=== PATIENT | male | born 1965 | race Caucasian/White ===

== ENCOUNTER → 2019-12-02 10:57 | Outpatient (CLI) | payer OTHER, SELFPAY ==
--- NOTE | 2019-12-02 11:00 | DI.RAD.S_ITS ---
PROCEDURE: XR ABDOMEN 1V INDICATIONS: renal calculi versus constipation, R abd pain TECHNIQUE: One view of the abdomen acquired. COMPARISON: None. FINDINGS: Surgical changes and devices: None. Bowel: Bowel gas pattern is normal. Slightly increased proximal colon stool quantity. Soft tissues: No suspicious abdominal calcifications. Visualized solid organ contours appear normal in size. Bones: No suspicious bony lesions. Mild dextro rotoscoliosis. Severe disc height loss at L5-S1. IMPRESSION: 1. No visible urinary calcifications. 2. Mildly increased quantity of solid stool in the proximal colon. Dictated by: Yudelka Brown M.D. on 12/02/2019 at 10:33 Approved by: Yudelka Brown M.D. on 12/02/2019 at 10:34
[2019-12-02 11:50] LABS: Add Manual Diff / Slide Review NO; Basophils Absolute Auto 0 /uL (0-100); Basophils Percent Auto 0.9 % (0-2); Eosinophils Absolute Auto 100 /uL (0-450); Eosinophils Percent Auto 1.9 % (2-4); Hematocrit 40.7 % (41-53); Hemoglobin 14.1 g/dL (13.5-17.5); Lymphocytes Absolute Auto 2000 /uL (1100-4500); Lymphocytes Percent Auto 39.7 % (25-40); Mean Corpuscular HGB Conc 34.7 % (30-36); Mean Corpuscular Volume 89.4 fL (80-100); Monocytes Absolute Auto 600 /uL (0-900); Neutrophils Absolute Auto 2300 /uL (1500-7000); Neutrophils Percent Auto 45.5 % (50-75); Platelet Count 270 X10^3/uL (150-400); Red Blood Cell Count 4.56 X10^6/uL (4.5-5.9); Red Cell Distribution Width 13.6 % (11.6-14.8); White Blood Cell Count 5.1 X10^3/uL (4.5-11.0)
[2019-12-02 12:24] LABS: Alanine Aminotransferase 25 IU/L (<50); Albumin 4.1 g/dL (3.5-5.0); Albumin Globulin Ratio 1.5 (1.0-2.8); Alkaline Phosphatase 87 U/L (38-126); Aspartate Aminotransferase 32 IU/L (17-59); BUN Creatinine Ratio 14.1 (6-22); Bilirubin Total 0.6 mg/dL (0.2-1.3); Blood Urea Nitrogen 11 mg/dL (9-20); Calcium 9.6 mg/dL (8.4-10.2); Carbon Dioxide 31 mmol/L (22-32); Chloride 102 mmol/L (98-107); Estimated Glomerular Filt Rate > 60.0 mL/min (>60); Globulin 2.8 g/dL (1.7-4.1); Glucose 95 mg/dL (70-100); HEMOLYSIS < 15 (0-50); Lipase 63 U/L (23-300); Sodium 140 mmol/L (137-145); Total Protein 6.9 g/dL (6.3-8.2)
== END ==
PROVIDERS: Referring Provider Nurse Practitioner; Visit Provider Nurse Practitioner
DX: R10.9 Unspecified abdominal pain (principal)
CPT/HCPCS: 36415; 74018; 80053; 83690; 85025

== ENCOUNTER → 2020-06-20 14:50 | Outpatient (CLI) | payer OTHER, SELFPAY ==
[2020-06-20] MEDS: COVID-19 VACC #1, MRNA(MOD) 100 MCG/0.5 ML VIAL IM (15:01)
== END ==
PROVIDERS: Visit Provider Internal Medicine
DX: Z23 Encounter for immunization (principal)
CPT/HCPCS: 0011A; 91301

== ENCOUNTER → 2020-07-18 08:42 | Outpatient (CLI) | payer OTHER, SELFPAY ==
[2020-07-18] MEDS: COVID-19 VACC #2, MRNA(MOD) 100 MCG/0.5 ML VIAL IM (08:52)
== END ==
PROVIDERS: Visit Provider Internal Medicine
DX: Z23 Encounter for immunization (principal)
CPT/HCPCS: 0012A; 91301

== ENCOUNTER → 2020-08-10 07:16 | Outpatient (CLI) | payer OTHER, SELFPAY ==
[2020-08-11 10:19] LABS: Insulin Level Total 9.8 uIU/mL (2.6-24.9)
== END ==
PROVIDERS: PCP Family Medicine; Referring Provider Family Medicine; Visit Provider Family Medicine
DX: R06.02 Shortness of breath (principal); R73.9 Hyperglycemia, unspecified
CPT/HCPCS: 36415; 83525

== ENCOUNTER → 2021-03-15 07:12 | Outpatient (CLI) | payer OTHER, SELFPAY ==
[2021-03-15 10:00] LABS: Prostate Specific Antigen 0.801 ng/mL (0.10-4.00)
[2021-03-16 09:09] LABS: PSA Free % 24.3 % (.); PSA, Total 0.7 ng/mL (0.0-4.0)
== END ==
PROVIDERS: PCP Family Medicine; Referring Provider Urology; Visit Provider Urology
DX: N13.8 Other obstructive and reflux uropathy (principal); N40.1 Benign prostatic hyperplasia with lower urinary tract symptoms; R39.13 Splitting of urinary stream; R39.14 Feeling of incomplete bladder emptying; N39.43 Post-void dribbling
CPT/HCPCS: 36415; 84153; 84154

== ENCOUNTER → 2021-03-21 07:04 | Outpatient (CLI) | payer OTHER, SELFPAY ==
[2021-03-21 09:10] LABS: Add Manual Diff / Slide Review NO; Basophils Absolute Auto 0 /uL (0-100); Basophils Percent Auto 0.7 % (0-2); Eosinophils Absolute Auto 100 /uL (0-450); Eosinophils Percent Auto 2.4 % (2-4); Lymphocytes Absolute Auto 1600 /uL (1100-4500); Lymphocytes Percent Auto 38.1 % (25-40); Mean Corpuscular HGB Conc 34.2 % (30-36); Mean Corpuscular Hemoglobin 30.6 PG (26-34); Mean Corpuscular Volume 89.3 fL (80-100); Monocytes Absolute Auto 500 /uL (0-900); Monocytes Percent Auto 11.9 % (3-14); Neutrophils Absolute Auto 2000 /uL (1500-7000); Neutrophils Percent Auto 46.9 % (50-75); Platelet Count 268 X10^3/uL (150-400); Red Blood Cell Count 4.59 X10^6/uL (4.5-5.9); Red Cell Distribution Width 13.4 % (11.6-14.8); White Blood Cell Count 4.2 X10^3/uL (4.5-11.0)
[2021-03-21 09:34] LABS: Alanine Aminotransferase 14 IU/L (<50); Albumin 4.2 g/dL (3.5-5.0); Albumin Globulin Ratio 1.6 (1.0-2.8); Alkaline Phosphatase 76 U/L (38-126); Aspartate Aminotransferase 24 IU/L (17-59); BUN Creatinine Ratio 14.8 (6-22); Bilirubin Total 0.7 mg/dL (0.2-1.3); Blood Urea Nitrogen 12 mg/dL (9-20); Calcium 9.3 mg/dL (8.4-10.2); Carbon Dioxide 30 mmol/L (22-32); Chloride 102 mmol/L (98-107); Cholesterol 172 mg/dL (140-199); Estimated Glomerular Filt Rate > 60.0 mL/min (>60); Globulin 2.6 g/dL (1.7-4.1); Glucose 94 mg/dL (70-100); HDL Cholesterol 54 mg/dL (40-60); HEMOLYSIS < 15 (0-50); LDL Cholesterol Calculated 102 mg/dL (<100); Potassium 4.2 mmol/L (3.4-5.1); Sodium 138 mmol/L (137-145); Total Protein 6.8 g/dL (6.3-8.2); Triglycerides 78 mg/dL (35-150)
[2021-03-22 15:47] LABS: Interpretation Negative (Negative)
[2021-03-27 17:37] LABS: 25 hydroxy Vitamin D 2 <1.0 ng/mL (.); 25 hydroxy Vitamin D3 46 ng/mL (.)
== END ==
PROVIDERS: PCP Family Medicine; Referring Provider Internal Medicine; Visit Provider Internal Medicine
DX: R14.1 Gas pain (principal); R10.9 Unspecified abdominal pain; R07.9 Chest pain, unspecified; E78.5 Hyperlipidemia, unspecified; N40.1 Benign prostatic hyperplasia with lower urinary tract symptoms; N13.8 Other obstructive and reflux uropathy; N42.9 Disorder of prostate, unspecified; R39.14 Feeling of incomplete bladder emptying; R33.9 Retention of urine, unspecified
CPT/HCPCS: 36415; 51798; 80053; 80061; 81002; 82306; 83013; 84443; 85025

== ENCOUNTER 2021-06-07 08:15 | Outpatient (RCR) | payer OTHER, SELFPAY ==
--- NOTE | 2021-05-07 12:51 | PT.OIE ---
Current Diagnoses Right lower quadrant pain (05/07/21) Past Medical History (Last Updated 03/21/21 @ 10:37 by Cristobal Villavicencio MD) Abnormal prostate by palpation BPH w urinary obs/LUTS Change in stool caliber Feeling of incomplete bladder emptying H/O cystoscopy History of herpes genitalis Incomplete emptying of bladder Intermittent urinary stream Post-void dribbling Splitting of urinary stream Past Surgical History (Last Reviewed 03/21/21 @ 10:21 by Cristobal Villavicencio MD) H/O cystoscopy Visit Care Team Role Provider Type Torsten Ibarra Family Provider Non-Staff Primary Care Provider Specialty: Nephrology Address: [address] [place] [address], [id number] Email: Lisbet Mcintosh MD Attending Provider Non-Staff Referring Provider Specialty: Internal Medicine Address: [address] [place] [address], [id number] Email: Physical Therapy Initial Evaluation PT-OP-A Visit Information Start: 05/06/21 07:39 Freq: Status: Active Protocol: Document 05/07/21 10:33 AMB (Rec: 05/07/21 10:41 AMB [id number]) Out-Patient Physical Therapy Visit Information Visit Information Visit Type Initial Evaluation PT-OP-B Current Condition Start: 05/06/21 07:39 Freq: Status: Active Protocol: Document 05/07/21 10:33 AMB (Rec: 05/07/21 10:41 AMB [id number]) Current Condition History of Current Condition Onset Date 6-9 months ago Current Complaints Hamstring/groin pain History of Current Condition R hamstring pain- feels pain with stretching. Hamstring happened first, then started noticing groin pain/pressure. A long time ago had back pain , but nothing recent. Any time I bend over I can feel some sensation in the hamstring. Isn't feeling it with walking or biking. Sits a lot for work, does do recumbent bike most days of the week. Prior Treatments and Tests ultrasound for inguinal hernia and negative per pt report Treatment Goals Patient/Caregiver Goals Be able to exercise/bend over without pain/pressure Prior Functional Status Baseline Function- ADL's Independent Baseline Function- Mobility Independent Current Functional Impairments (Reported) Functional Limitations- ADL's Pressure/pain with bending forward Personal Factors Other Personal Factors That May Effect none Therapy/Recovery PT-OP-C Subjective Start: 05/06/21 07:39 Freq: Status: Active Protocol: Document 05/07/21 10:30 AMB (Rec: 05/08/21 08:08 AMB [id number]) Patient Questionnaires Lower Extremity Functional Scale LEFS Score 73 OP-PT Pain Assessment Comments Pain Comments 3/10 distal hamstring and R abdomen/iliopsoas area, not as much pain over pubic symphysis or adductors PT-OP-J Posture/Palpation/Skin Start: 05/06/21 07:39 Freq: Status: Active Protocol: Document 05/07/21 10:30 AMB (Rec: 05/08/21 08:08 AMB [id number]) Palpation Assessment Location One Palpation Location R LE Palpation Details Hamstring pain more at distal medial tendons, no pain with palption of adductor or iliopsoas PT-OP-K Range of Motion Start: 05/06/21 07:39 Freq: Status: Active Protocol: Document 05/07/21 10:30 AMB (Rec: 05/07/21 10:53 AMB [id number]) Hip Goniometric Range of Motion Hip Right Passive Flexion w/Knee Flexed 112 Internal Rotation 41 Comments Brian test 52 on R vs70 on L. Pain with both hip flexion and IR, no painful ER. Left hip has the same ROM but no pain at end range. PT-OP-L Special Tests Start: 05/06/21 07:39 Freq: Status: Active Protocol: Document 05/07/21 10:30 AMB (Rec: 05/08/21 08:08 AMB [id number]) Special Tests Hip Special Tests VANCE Test Results - Brian Test Results + Comments on R Scour Test Test Results + Comments pain reproduced with flexion and adduction on R PT-OP-M Strength Start: 05/06/21 07:39 Freq: Status: Active Protocol: Document 05/07/21 10:30 AMB (Rec: 05/08/21 08:08 AMB [id number]) Hip Strength Hip Manual Muscle Testing Right Flexion (L2) 4+ Good+ Extension (S1) 4 Good Abduction 4+ Good+ Left Flexion (L2) 4+ Good+ Extension (S1) 4+ Good+ Abduction 4+ Good+ Knee Strength Knee Manual Muscle Testing Right Flexion (S2) 5 Normal Extension (L3) 5 Normal Left Flexion (S2) 5 Normal Extension (L3) 5 Normal PT-OP-Q Treatments Start: 05/06/21 07:39 Freq: Status: Active Protocol: Document 05/07/21 10:30 AMB (Rec: 05/08/21 12:49 AMB [id number]) Therapeutic Exercises Sidelying Exercises clamshell Side right Reps/Minutes 2x10 Standing Exercises hip flexor stretch Side right Reps/Minutes 30X2 PT-OP-T Assessment and Plan Start: 05/06/21 07:39 Freq: Status: Active Protocol: Document 05/07/21 10:30 AMB (Rec: 05/08/21 12:49 AMB [id number]) Physical Therapy Assessment Rehab Potential Rehabilitation Potential Good Evaluation Complexity Number of Personal Factors/Comorbidities 0 Number of Body Systems Impaired 4 or More Clinical Presentation at Evaluation Stable Impairments Impairments Functional Activities,Pain,ROM ,Soft Tissue Mobility,Strength Goals Functional movement Short Term Goal (STG) 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 STG Duration 4 weeks HEP Short Term Goal (STG) Baltazar will be independent and consistent with a HEP to strengthen and stretch his right hip. STG Duration 4 weeks One Impairment ROM Short Term Goal (STG) Baltazar will improve his hip extension as shown by Brian test position of 65 degrees of knee flexion or better. STG Duration 4 weeks Catering Service Manager Goal (LTG) Baltazar will have 112 degrees of hip flexion without pain. LTG Duration 8 weeks Assessment Summary Assessment Baltazar attends physical therapy with history of hamstring pain with forward flexion and then newer onset pressure more over iliopsoas than adductor insertion all on the right side. He presented with painful hip flexion and internal rotation at end range , although his range of motion in those directions was very similar to the non-painful leg . He also presented with weakness in his gluteals bilaterally. PT diagnosis of overuse of hamstrings/ tightness due to compensation of weakness in glutes and also recumbent bike use. Baltazar will benefit from PT to address his pain at end range in his right hip and hamstring /hip flexor mobility impairments which are impacting his ability to bend forward. Physical Therapy Plan Frequency and Duration Frequency of Treatment 2x/Week Duration of Treatment 8 weeks Plan of Care Start Date 05/07/21 Plan of Care End Date 07/02/21 Therapeutic Interventions Therapeutic Interventions Gait Training,Home Exercise Program,Joint Mobilizations, Manual Therapy,Neuromuscular Re-education,Self-Care/Home Management,Therapeutic Activities,Therapeutic Exercises Modalities Cold Pack/Ice Massage,Electric Stimulation,Hot Packs Next Visit Focus/Plan Next Note Type Treatment Note Next Visit Plan follow up on clamshells and hip flexor strength, start on gluteal strengthening
--- NOTE | 2021-05-07 12:52 | PT.OPPOC ---
Physical, Occupational & Speech Therapy At [facility] Current Diagnoses Right lower quadrant pain (05/07/21) Visit Care Team Role Provider Type Torsten Ibarra Family Provider Non-Staff Primary Care Provider Specialty: Nephrology Address: [address] [place] [address], [id number] Email: Lisbet Mcintosh MD Attending Provider Non-Staff Referring Provider Specialty: Internal Medicine Address: [address] [place] [address], [id number] Email: Plan Of Care PT-OP-T Assessment and Plan Start: 05/06/21 07:39 Freq: Status: Active Protocol: Document 05/07/21 10:30 AMB (Rec: 05/08/21 12:49 AMB [id number]) Physical Therapy Assessment Rehab Potential Rehabilitation Potential Good Evaluation Complexity Number of Personal Factors/Comorbidities 0 Number of Body Systems Impaired 4 or More Clinical Presentation at Evaluation Stable Impairments Impairments Functional Activities,Pain,ROM ,Soft Tissue Mobility,Strength Goals Functional movement Short Term Goal (STG) 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 STG Duration 4 weeks HEP Short Term Goal (STG) Baltazar will be independent and consistent with a HEP to strengthen and stretch his right hip. STG Duration 4 weeks One Impairment ROM Short Term Goal (STG) Baltazar will improve his hip extension as shown by Brian test position of 65 degrees of knee flexion or better. STG Duration 4 weeks Mcc Goal (LTG) Baltazar will have 112 degrees of hip flexion without pain. LTG Duration 8 weeks Assessment Summary Assessment Baltazar attends physical therapy with history of hamstring pain with forward flexion and then newer onset pressure more over iliopsoas than adductor insertion all on the right side. He presented with painful hip flexion and internal rotation at end range , although his range of motion in those directions was very similar to the non-painful leg . He also presented with weakness in his gluteals bilaterally. PT diagnosis of overuse of hamstrings/ tightness due to compensation of weakness in glutes and also recumbent bike use. Baltazar will benefit from PT to address his pain at end range in his right hip and hamstring /hip flexor mobility impairments which are impacting his ability to bend forward. Physical Therapy Plan Frequency and Duration Frequency of Treatment 2x/Week Duration of Treatment 8 weeks Plan of Care Start Date 05/07/21 Plan of Care End Date 07/02/21 Therapeutic Interventions Therapeutic Interventions Gait Training,Home Exercise Program,Joint Mobilizations, Manual Therapy,Neuromuscular Re-education,Self-Care/Home Management,Therapeutic Activities,Therapeutic Exercises Modalities Cold Pack/Ice Massage,Electric Stimulation,Hot Packs Next Visit Focus/Plan Next Note Type Treatment Note Next Visit Plan follow up on clamshells and hip flexor strength, start on gluteal strengthening Plan of Care Dates Plan of Care Start Date 05/07/21 Plan of Care End Date 07/02/21 Electronically Signed by: Renata Lao, PT 05/08/21 [id number] Please Sign and Return: I have reviewed this Plan of Care and certify that the skilled therapy services above are required to meet the patient?s needs. Physician Signature Date Printed Name and Credentials Clinical Instructor Signature Printed Name and Credentials
--- NOTE | 2021-05-09 08:40 | PT.OTN ---
Current Diagnoses Right lower quadrant pain (05/09/21) Physical Therapy Treatment Note PT-OP-A Visit Information Start: 05/06/21 07:39 Freq: Status: Active Protocol: Document 05/09/21 07:31 AMB (Rec: 05/09/21 08:39 AMB [id number]) Out-Patient Physical Therapy Visit Information Visit Information Visit Type Treatment Note Visit Start Time 07:30 Visit Stop Time 08:15 Total Visit Minutes 45 Visit Number 2 PT-OP-B Current Condition Start: 05/06/21 07:39 Freq: Status: Active Protocol: Document 05/07/21 10:33 AMB (Rec: 05/07/21 10:41 AMB [id number]) Current Condition History of Current Condition Onset Date 6-9 months ago Current Complaints Hamstring/groin pain History of Current Condition R hamstring pain- feels pain with stretching. Hamstring happened first, then started noticing groin pain/pressure. A long time ago had back pain , but nothing recent. Any time I bend over I can feel some sensation in the hamstring. Isn't feeling it with walking or biking. Sits a lot for work, does do recumbant bike most days of the week. Prior Treatments and Tests ultrasound for inguinal hernia and negative per pt report Treatment Goals Patient/Caregiver Goals Be able to exercise/bend over without pain/pressure Prior Functional Status Baseline Function- ADL's Independent Baseline Function- Mobility Independent Current Functional Impairments (Reported) Functional Limitations- ADL's Pressure/pain with bending forward Personal Factors Other Personal Factors That May Effect none Therapy/Recovery PT-OP-C Subjective Start: 05/06/21 07:39 Freq: Status: Active Protocol: Document 05/09/21 07:31 AMB (Rec: 05/09/21 08:39 AMB [id number]) OP-PT Subjective Patient Comments Patient Comments Baltazar attends with having noticed some new lateral hip discomfort with sit to stand. PT-OP-J Posture/Palpation/Skin Start: 05/06/21 07:39 Freq: Status: Active Protocol: Document 05/07/21 10:30 AMB (Rec: 05/08/21 08:08 AMB [id number]) Palpation Assessment Location One Palpation Location R LE Palpation Details Hamstring pain more at distal medial tendons, no pain with palption of adductor or iliopsoas PT-OP-K Range of Motion Start: 05/06/21 07:39 Freq: Status: Active Protocol: Document 05/07/21 10:30 AMB (Rec: 05/07/21 10:53 AMB [id number]) Hip Goniometric Range of Motion Hip Right Passive Flexion w/Knee Flexed 112 Internal Rotation 41 Comments Brian test 52 on R vs70 on L. Pain with both hip flexion and IR, no painful ER. Left hip has the same ROM but no pain at end range. PT-OP-L Special Tests Start: 05/06/21 07:39 Freq: Status: Active Protocol: Document 05/07/21 10:30 AMB (Rec: 05/08/21 08:08 AMB [id number]) Special Tests Hip Special Tests VANCE Test Results - Brian Test Results + Comments on R Scour Test Test Results + Comments pain reproduced with flexion and adduction on R PT-OP-M Strength Start: 05/06/21 07:39 Freq: Status: Active Protocol: Document 05/07/21 10:30 AMB (Rec: 05/08/21 08:08 AMB [id number]) Hip Strength Hip Manual Muscle Testing Right Flexion (L2) 4+ Good+ Extension (S1) 4 Good Abduction 4+ Good+ Left Flexion (L2) 4+ Good+ Extension (S1) 4+ Good+ Abduction 4+ Good+ Knee Strength Knee Manual Muscle Testing Right Flexion (S2) 5 Normal Extension (L3) 5 Normal Left Flexion (S2) 5 Normal Extension (L3) 5 Normal PT-OP-Q Treatments Start: 05/06/21 07:39 Freq: Status: Active Protocol: Document 05/09/21 07:31 AMB (Rec: 05/09/21 08:39 AMB [id number]) Gym Equipment Shuttle Recovery Bilateral Squats Resistance 50 Reps/Time 3x10 Therapeutic Exercises Supine Exercises IT band stretch Reps/Minutes 30x2 1 Supine Exercise Name SLR Resistance right Reps/Minutes 10 active hamstring stretch Reps/Minutes 10 Comments increased Prone Exercises 1 Prone Exercise Name hip extension Comments knee bent to 90 d Sidelying Exercises clamshell Side right Reps/Minutes 2x10 Standing Exercises active hamstring stretch Comments against wall hip flexor stretch Side right Reps/Minutes 30X2 Manual Therapy Treatment Soft Tissue Mobilization hamstring Comments medial distal tendonds Other Other Manual Treatments long axis traction R PT-OP-T Assessment and Plan Start: 05/06/21 07:39 Freq: Status: Active Protocol: Document 05/09/21 07:31 AMB (Rec: 05/09/21 08:39 AMB [id number]) Physical Therapy Assessment Goals Functional movement Short Term Goal (STG) 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 STG Duration 4 weeks HEP Short Term Goal (STG) Baltazar will be independent and consistent with a HEP to strengthen and stretch his right hip. STG Duration 4 weeks One Impairment ROM Short Term Goal (STG) Baltazar will improve his hip extension as shown by Brian test position of 65 degrees of knee flexion or better. STG Duration 4 weeks Film Developing Machine Operator Goal (LTG) Baltazar will have 112 degrees of hip flexion without pain. LTG Duration 8 weeks Assessment Summary Assessment Baltazar did have increased sx after doing active hamstring stretch, but did not have nerve sx as he usually does when the knee is straight. Tolerated strengthening well, wondering if lateral hip discomfort which is new is from clamshells. Physical Therapy Plan Next Visit Focus/Plan Next Note Type Treatment Note Next Visit Plan Follow up on hip ext in prone, SLR, can we find a way to do active hamstring stretch without increased sx.
--- NOTE | 2021-05-14 15:33 | PT.OTN ---
Current Diagnoses Right lower quadrant pain (05/14/21) Physical Therapy Treatment Note PT-OP-A Visit Information Start: 05/06/21 07:39 Freq: Status: Active Protocol: Document 05/14/21 10:23 AMB (Rec: 05/14/21 11:45 AMB [id number]) Out-Patient Physical Therapy Visit Information Visit Information Visit Type Treatment Note Visit Start Time 10:15 Visit Stop Time 11:00 Total Visit Minutes 45 Visit Number 3 PT-OP-B Current Condition Start: 05/06/21 07:39 Freq: Status: Active Protocol: Document 05/07/21 10:33 AMB (Rec: 05/07/21 10:41 AMB [id number]) Current Condition History of Current Condition Onset Date 6-9 months ago Current Complaints Hamstring/groin pain History of Current Condition R hamstring pain- feels pain with stretching. Hamstring happened first, then started noticing groin pain/pressure. A long time ago had back pain , but nothing recent. Any time I bend over I can feel some sensation in the hamstring. Isn't feeling it with walking or biking. Sits a lot for work, does do recumbant bike most days of the week. Prior Treatments and Tests ultrasound for inguinal hernia and negative per pt report Treatment Goals Patient/Caregiver Goals Be able to exercise/bend over without pain/pressure Prior Functional Status Baseline Function- ADL's Independent Baseline Function- Mobility Independent Current Functional Impairments (Reported) Functional Limitations- ADL's Pressure/pain with bending forward Personal Factors Other Personal Factors That May Effect none Therapy/Recovery PT-OP-C Subjective Start: 05/06/21 07:39 Freq: Status: Active Protocol: Document 05/09/21 07:31 AMB (Rec: 05/09/21 08:39 AMB [id number]) OP-PT Subjective Patient Comments Patient Comments Baltazar attends with having noticed some new lateral hip discomfort with sit to stand. PT-OP-J Posture/Palpation/Skin Start: 05/06/21 07:39 Freq: Status: Active Protocol: Document 05/07/21 10:30 AMB (Rec: 05/08/21 08:08 AMB [id number]) Palpation Assessment Location One Palpation Location R LE Palpation Details Hamstring pain more at distal medial tendons, no pain with palption of adductor or iliopsoas PT-OP-K Range of Motion Start: 05/06/21 07:39 Freq: Status: Active Protocol: Document 05/07/21 10:30 AMB (Rec: 05/07/21 10:53 AMB [id number]) Hip Goniometric Range of Motion Hip Right Passive Flexion w/Knee Flexed 112 Internal Rotation 41 Comments Brian test 52 on R vs70 on L. Pain with both hip flexion and IR, no painful ER. Left hip has the same ROM but no pain at end range. PT-OP-L Special Tests Start: 05/06/21 07:39 Freq: Status: Active Protocol: Document 05/07/21 10:30 AMB (Rec: 05/08/21 08:08 AMB [id number]) Special Tests Hip Special Tests VANCE Test Results - Brian Test Results + Comments on R Scour Test Test Results + Comments pain reproduced with flexion and adduction on R PT-OP-M Strength Start: 05/06/21 07:39 Freq: Status: Active Protocol: Document 05/07/21 10:30 AMB (Rec: 05/08/21 08:08 AMB [id number]) Hip Strength Hip Manual Muscle Testing Right Flexion (L2) 4+ Good+ Extension (S1) 4 Good Abduction 4+ Good+ Left Flexion (L2) 4+ Good+ Extension (S1) 4+ Good+ Abduction 4+ Good+ Knee Strength Knee Manual Muscle Testing Right Flexion (S2) 5 Normal Extension (L3) 5 Normal Left Flexion (S2) 5 Normal Extension (L3) 5 Normal PT-OP-Q Treatments Start: 05/06/21 07:39 Freq: Status: Active Protocol: Document 05/14/21 10:23 AMB (Rec: 05/14/21 11:45 AMB [id number]) Gym Equipment Shuttle Recovery Unilateral Squats Resistance 37 Reps/Time 2x10 Bilateral Squats Resistance 50 Reps/Time 3x10 Therapeutic Exercises Supine Exercises bridges Resistance 10 Comments cued glute fac. rather than low back active hamstring stretch Reps/Minutes 10 Comments increased Prone Exercises 1 Prone Exercise Name hip extension Comments knee bent to 90 d Sidelying Exercises clamshell Side right Reps/Minutes 2x10 Standing Exercises chilean lift Standing Exercise Name single leg Reps/Minutes 10-UE support Comments cue core/leg alignment active hamstring stretch Reps/Minutes 30x3 Comments against wall hip flexor stretch Side right Reps/Minutes 30X2 PT-OP-T Assessment and Plan Start: 05/06/21 07:39 Freq: Status: Active Protocol: Document 05/14/21 10:15 AMB (Rec: 05/14/21 15:32 AMB [id number]) Physical Therapy Assessment Goals Functional movement Short Term Goal (STG) 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 STG Duration 4 weeks HEP Short Term Goal (STG) Baltazar will be independent and consistent with a HEP to strengthen and stretch his right hip. STG Duration 4 weeks One Impairment ROM Short Term Goal (STG) Baltazar will improve his hip extension as shown by Brian test position of 65 degrees of knee flexion or better. STG Duration 4 weeks Jail Goal (LTG) Baltazar will have 112 degrees of hip flexion without pain. LTG Duration 8 weeks Assessment Summary Assessment Overall pt continues to have pain with forward flexion, not back with full flexion, more midrange. Physical Therapy Plan Next Visit Focus/Plan Next Note Type Treatment Note Next Visit Plan Continue hamstring stretches that don't irritate nerve sx and glute strengthening- follow up on RDL and bridge
--- NOTE | 2021-05-16 12:41 | PT.OTN ---
Current Diagnoses Right lower quadrant pain (05/16/21) Physical Therapy Treatment Note PT-OP-A Visit Information Start: 05/06/21 07:39 Freq: Status: Active Protocol: Document 05/16/21 07:31 AMB (Rec: 05/16/21 08:20 AMB [id number]) Out-Patient Physical Therapy Visit Information Visit Information Visit Type Treatment Note Visit Start Time 07:30 Visit Stop Time 08:15 Total Visit Minutes 45 Visit Number 4 PT-OP-B Current Condition Start: 05/06/21 07:39 Freq: Status: Active Protocol: Document 05/07/21 10:33 AMB (Rec: 05/07/21 10:41 AMB [id number]) Current Condition History of Current Condition Onset Date 6-9 months ago Current Complaints Hamstring/groin pain History of Current Condition R hamstring pain- feels pain with stretching. Hamstring happened first, then started noticing groin pain/pressure. A long time ago had back pain , but nothing recent. Any time I bend over I can feel some sensation in the hamstring. Isn't feeling it with walking or biking. Sits a lot for work, does do recumbant bike most days of the week. Prior Treatments and Tests ultrasound for inguinal hernia and negative per pt report Treatment Goals Patient/Caregiver Goals Be able to exercise/bend over without pain/pressure Prior Functional Status Baseline Function- ADL's Independent Baseline Function- Mobility Independent Current Functional Impairments (Reported) Functional Limitations- ADL's Pressure/pain with bending forward Personal Factors Other Personal Factors That May Effect none Therapy/Recovery PT-OP-C Subjective Start: 05/06/21 07:39 Freq: Status: Active Protocol: Document 05/16/21 07:31 AMB (Rec: 05/16/21 08:20 AMB [id number]) OP-PT Subjective Patient Comments Patient Comments Increased pain in lower R abdomen, didn't seem to be related to exercise. Continues to have hamstring pain as he bends down. PT-OP-J Posture/Palpation/Skin Start: 05/06/21 07:39 Freq: Status: Active Protocol: Document 05/07/21 10:30 AMB (Rec: 05/08/21 08:08 AMB [id number]) Palpation Assessment Location One Palpation Location R LE Palpation Details Hamstring pain more at distal medial tendons, no pain with palption of adductor or iliopsoas PT-OP-K Range of Motion Start: 05/06/21 07:39 Freq: Status: Active Protocol: Document 05/07/21 10:30 AMB (Rec: 05/07/21 10:53 AMB [id number]) Hip Goniometric Range of Motion Hip Right Passive Flexion w/Knee Flexed 112 Internal Rotation 41 Comments Brian test 52 on R vs70 on L. Pain with both hip flexion and IR, no painful ER. Left hip has the same ROM but no pain at end range. PT-OP-L Special Tests Start: 05/06/21 07:39 Freq: Status: Active Protocol: Document 05/07/21 10:30 AMB (Rec: 05/08/21 08:08 AMB [id number]) Special Tests Hip Special Tests VANCE Test Results - Brian Test Results + Comments on R Scour Test Test Results + Comments pain reproduced with flexion and adduction on R PT-OP-M Strength Start: 05/06/21 07:39 Freq: Status: Active Protocol: Document 05/07/21 10:30 AMB (Rec: 05/08/21 08:08 AMB [id number]) Hip Strength Hip Manual Muscle Testing Right Flexion (L2) 4+ Good+ Extension (S1) 4 Good Abduction 4+ Good+ Left Flexion (L2) 4+ Good+ Extension (S1) 4+ Good+ Abduction 4+ Good+ Knee Strength Knee Manual Muscle Testing Right Flexion (S2) 5 Normal Extension (L3) 5 Normal Left Flexion (S2) 5 Normal Extension (L3) 5 Normal PT-OP-Q Treatments Start: 05/06/21 07:39 Freq: Status: Active Protocol: Document 05/16/21 07:30 AMB (Rec: 05/16/21 12:37 AMB [id number]) Gym Equipment Shuttle Recovery Bilateral Squats Resistance 50 Reps/Time 3x10 Therapeutic Exercises Supine Exercises bridges Resistance 10 Comments cued glute fac. rather than low back IT band stretch Reps/Minutes 30x2 Standing Exercises heel raise Reps/Minutes 2x10 calf stretch Reps/Minutes 30x2 [place] lift Standing Exercise Name single leg Reps/Minutes 10-UE support Comments cue core/leg alignment active hamstring stretch Reps/Minutes 30x3 Comments against wall hip flexor stretch Side right Reps/Minutes 30X2 Manual Therapy Treatment Soft Tissue Mobilization 1 Body Location IT band rolling Comments rolling pin vs foam rolling PT-OP-T Assessment and Plan Start: 05/06/21 07:39 Freq: Status: Active Protocol: Document 05/16/21 07:31 AMB (Rec: 05/16/21 08:20 AMB [id number]) Physical Therapy Assessment Goals Functional movement Short Term Goal (STG) 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 STG Duration 4 weeks HEP Short Term Goal (STG) Baltazar will be independent and consistent with a HEP to strengthen and stretch his right hip. STG Duration 4 weeks One Impairment ROM Short Term Goal (STG) Baltazar will improve his hip extension as shown by Brian test position of 65 degrees of knee flexion or better. STG Duration 4 weeks Automotive Dismantler Goal (LTG) Baltazar will have 112 degrees of hip flexion without pain. LTG Duration 8 weeks Assessment Summary Assessment Seated lumbar flexion increased knee pain when he was on a tall chair but not a lower one, calf stretching strengthening did not reproduce pain. Did give pt ITB stretch as HEP as he continues to have lateral hip pain with clamshell and RDL. Physical Therapy Plan Next Visit Focus/Plan Next Note Type Treatment Note Next Visit Plan Continue hamstring stretches that don't irritate nerve sx and glute strengthening- follow up on RDL and bridge
--- NOTE | 2021-05-20 12:51 | PT.OTN ---
Current Diagnoses Right lower quadrant pain (05/20/21) Physical Therapy Treatment Note PT-OP-A Visit Information Start: 05/06/21 07:39 Freq: Status: Active Protocol: Document 05/20/21 07:30 AMB (Rec: 05/20/21 08:19 AMB [id number]) Out-Patient Physical Therapy Visit Information Visit Information Visit Type Treatment Note Visit Start Time 07:30 Visit Stop Time 08:15 Total Visit Minutes 45 Visit Number 5 PT-OP-B Current Condition Start: 05/06/21 07:39 Freq: Status: Active Protocol: Document 05/07/21 10:33 AMB (Rec: 05/07/21 10:41 AMB [id number]) Current Condition History of Current Condition Onset Date 6-9 months ago Current Complaints Hamstring/groin pain History of Current Condition R hamstring pain- feels pain with stretching. Hamstring happened first, then started noticing groin pain/pressure. A long time ago had back pain , but nothing recent. Any time I bend over I can feel some sensation in the hamstring. Isn't feeling it with walking or biking. Sits a lot for work, does do recumbant bike most days of the week. Prior Treatments and Tests ultrasound for inguinal hernia and negative per pt report Treatment Goals Patient/Caregiver Goals Be able to exercise/bend over without pain/pressure Prior Functional Status Baseline Function- ADL's Independent Baseline Function- Mobility Independent Current Functional Impairments (Reported) Functional Limitations- ADL's Pressure/pain with bending forward Personal Factors Other Personal Factors That May Effect none Therapy/Recovery PT-OP-C Subjective Start: 05/06/21 07:39 Freq: Status: Active Protocol: Document 05/20/21 07:30 AMB (Rec: 05/20/21 12:50 AMB [id number]) OP-PT Subjective Patient Comments Patient Comments Noticed compression of hamstring muscle seemed to relieve pain. PT-OP-J Posture/Palpation/Skin Start: 05/06/21 07:39 Freq: Status: Active Protocol: Document 05/07/21 10:30 AMB (Rec: 05/08/21 08:08 AMB [id number]) Palpation Assessment Location One Palpation Location R LE Palpation Details Hamstring pain more at distal medial tendons, no pain with palption of adductor or iliopsoas PT-OP-K Range of Motion Start: 05/06/21 07:39 Freq: Status: Active Protocol: Document 05/07/21 10:30 AMB (Rec: 05/07/21 10:53 AMB [id number]) Hip Goniometric Range of Motion Hip Right Passive Flexion w/Knee Flexed 112 Internal Rotation 41 Comments Brian test 52 on R vs70 on L. Pain with both hip flexion and IR, no painful ER. Left hip has the same ROM but no pain at end range. PT-OP-L Special Tests Start: 05/06/21 07:39 Freq: Status: Active Protocol: Document 05/07/21 10:30 AMB (Rec: 05/08/21 08:08 AMB [id number]) Special Tests Hip Special Tests VANCE Test Results - Brian Test Results + Comments on R Scour Test Test Results + Comments pain reproduced with flexion and adduction on R PT-OP-M Strength Start: 05/06/21 07:39 Freq: Status: Active Protocol: Document 05/07/21 10:30 AMB (Rec: 05/08/21 08:08 AMB [id number]) Hip Strength Hip Manual Muscle Testing Right Flexion (L2) 4+ Good+ Extension (S1) 4 Good Abduction 4+ Good+ Left Flexion (L2) 4+ Good+ Extension (S1) 4+ Good+ Abduction 4+ Good+ Knee Strength Knee Manual Muscle Testing Right Flexion (S2) 5 Normal Extension (L3) 5 Normal Left Flexion (S2) 5 Normal Extension (L3) 5 Normal PT-OP-Q Treatments Start: 05/06/21 07:39 Freq: Status: Active Protocol: Document 05/20/21 07:30 AMB (Rec: 05/20/21 12:50 AMB [id number]) Gym Equipment Shuttle Recovery Bilateral Squats Resistance 50 Reps/Time 3x10 Therapeutic Exercises Supine Exercises 1 Supine Exercise Name SLR Resistance right Reps/Minutes 10 active hamstring stretch Reps/Minutes 10 Comments increased Standing Exercises active hamstring stretch Reps/Minutes 30x3 Comments against wall hip flexor stretch Side right Reps/Minutes 30X2 Manual Therapy Treatment Soft Tissue Mobilization 1 Body Location hip flexor Mobilization Type Myofascial Release Joint Mobilizations 1 Joint hip inferior glide with hip flexion Comments pt continued to feel pressure in anterior hip PT-OP-T Assessment and Plan Start: 05/06/21 07:39 Freq: Status: Active Protocol: Document 05/20/21 07:30 AMB (Rec: 05/20/21 12:50 AMB [id number]) Physical Therapy Assessment Goals Functional movement Short Term Goal (STG) 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 STG Duration 4 weeks HEP Short Term Goal (STG) Baltazar will be independent and consistent with a HEP to strengthen and stretch his right hip. STG Duration 4 weeks One Impairment ROM Short Term Goal (STG) Baltazar will improve his hip extension as shown by Brian test position of 65 degrees of knee flexion or better. STG Duration 4 weeks [facility] Goal (LTG) Baltazar will have 112 degrees of hip flexion without pain. LTG Duration 8 weeks Assessment Summary Assessment Baltazar did well with contract relax. Plan to review HEP and progress as able since he doesn't have PT scheduled for 2 weeks due to therapist availability. Did discuss compression band for hamstring when doing exercises. Physical Therapy Plan Next Visit Focus/Plan Next Note Type Treatment Note Next Visit Plan Continue hamstring stretches that don't irritate nerve sx and glute strengthening- follow up on RDL and bridge
--- NOTE | 2021-05-23 15:25 | PT.OTN ---
Current Diagnoses Right lower quadrant pain (05/23/21) Physical Therapy Treatment Note PT-OP-A Visit Information Start: 05/06/21 07:39 Freq: Status: Active Protocol: Document 05/23/21 07:33 AMB (Rec: 05/23/21 08:23 AMB [id number]) Out-Patient Physical Therapy Visit Information Visit Information Visit Type Treatment Note Visit Start Time 07:30 Visit Stop Time 08:15 Total Visit Minutes 45 Visit Number 6 PT-OP-B Current Condition Start: 05/06/21 07:39 Freq: Status: Active Protocol: Document 05/07/21 10:33 AMB (Rec: 05/07/21 10:41 AMB [id number]) Current Condition History of Current Condition Onset Date 6-9 months ago Current Complaints Hamstring/groin pain History of Current Condition R hamstring pain- feels pain with stretching. Hamstring happened first, then started noticing groin pain/pressure. A long time ago had back pain , but nothing recent. Any time I bend over I can feel some sensation in the hamstring. Isn't feeling it with walking or biking. Sits a lot for work, does do recumbant bike most days of the week. Prior Treatments and Tests ultrasound for inguinal hernia and negative per pt report Treatment Goals Patient/Caregiver Goals Be able to exercise/bend over without pain/pressure Prior Functional Status Baseline Function- ADL's Independent Baseline Function- Mobility Independent Current Functional Impairments (Reported) Functional Limitations- ADL's Pressure/pain with bending forward Personal Factors Other Personal Factors That May Effect none Therapy/Recovery PT-OP-C Subjective Start: 05/06/21 07:39 Freq: Status: Active Protocol: Document 05/23/21 07:33 AMB (Rec: 05/23/21 08:23 AMB [id number]) OP-PT Subjective Patient Comments Patient Comments Noticed improved symptoms with icing. PT-OP-J Posture/Palpation/Skin Start: 05/06/21 07:39 Freq: Status: Active Protocol: Document 05/07/21 10:30 AMB (Rec: 05/08/21 08:08 AMB [id number]) Palpation Assessment Location One Palpation Location R LE Palpation Details Hamstring pain more at distal medial tendons, no pain with palption of adductor or iliopsoas PT-OP-K Range of Motion Start: 05/06/21 07:39 Freq: Status: Active Protocol: Document 05/07/21 10:30 AMB (Rec: 05/07/21 10:53 AMB [id number]) Hip Goniometric Range of Motion Hip Right Passive Flexion w/Knee Flexed 112 Internal Rotation 41 Comments Brian test 52 on R vs70 on L. Pain with both hip flexion and IR, no painful ER. Left hip has the same ROM but no pain at end range. PT-OP-L Special Tests Start: 05/06/21 07:39 Freq: Status: Active Protocol: Document 05/07/21 10:30 AMB (Rec: 05/08/21 08:08 AMB [id number]) Special Tests Hip Special Tests VANCE Test Results - Brian Test Results + Comments on R Scour Test Test Results + Comments pain reproduced with flexion and adduction on R PT-OP-M Strength Start: 05/06/21 07:39 Freq: Status: Active Protocol: Document 05/07/21 10:30 AMB (Rec: 05/08/21 08:08 AMB [id number]) Hip Strength Hip Manual Muscle Testing Right Flexion (L2) 4+ Good+ Extension (S1) 4 Good Abduction 4+ Good+ Left Flexion (L2) 4+ Good+ Extension (S1) 4+ Good+ Abduction 4+ Good+ Knee Strength Knee Manual Muscle Testing Right Flexion (S2) 5 Normal Extension (L3) 5 Normal Left Flexion (S2) 5 Normal Extension (L3) 5 Normal PT-OP-Q Treatments Start: 05/06/21 07:39 Freq: Status: Active Protocol: Document 05/23/21 07:32 AMB (Rec: 05/23/21 15:25 AMB [id number]) Gym Equipment Cable Column (Body Solid) Leg Curl Resistance 40 Reps/Time 2x10 Therapeutic Exercises Supine Exercises bridges Resistance 10 Comments cued glute fac. rather than low back active hamstring stretch Reps/Minutes 10 Sitting Exercises t band hamstring Resistance #4 band Reps/Minutes 2x10 Standing Exercises y[place] lift Standing Exercise Name single leg Reps/Minutes 10-UE support Comments cue core/leg alignment hip flexor stretch Side right Reps/Minutes 30X2 Other Exercises prone hamstring curl Equipment Used 10# ankle weight Reps/Minutes 2x10 PT-OP-T Assessment and Plan Start: 05/06/21 07:39 Freq: Status: Active Protocol: Document 05/23/21 07:33 [facility] (Rec: 05/23/21 08:23 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 STG Duration 4 weeks HEP Short Term Goal (STG) Baltazar will be independent and consistent with a HEP to strengthen and stretch his right hip. STG Duration 4 weeks One Impairment ROM Short Term Goal (STG) Baltazar will improve his hip extension as shown by Brian test position of 65 degrees of knee flexion or better. STG Duration 4 weeks Plasterer Spot Goal (LTG) Baltazar will have 112 degrees of hip flexion without pain. LTG Duration 8 weeks Assessment Summary Assessment Baltazar is doing better today after icing yesterday, was able to tolerate more strengthening with less pain. Able to move through RDL through greater ROM. Encouraged to continue strengthening and icing hamstring over the next two weeks, then follow up. Pt continues to have pain in anterior hip, does have pain with hip flexion and IR. Physical Therapy Plan Next Visit Focus/Plan Next Note Type Treatment Note Next Visit Plan Continue hamstring stretches that don't irritate nerve sx and glute strengthening- follow up on RDL and bridge. Reassess hip flexion and IR ROM.
--- NOTE | 2021-06-07 10:32 | PT.OTN ---
Current Diagnoses Right lower quadrant pain (06/07/21) Physical Therapy Treatment Note PT-OP-A Visit Information Start: 05/06/21 07:39 Freq: Status: Active Protocol: Document 06/07/21 08:15 AMB (Rec: 06/07/21 09:06 AMB [id number]) Out-Patient Physical Therapy Visit Information Visit Information Visit Type Treatment Note Visit Start Time 08:15 Visit Stop Time 09:00 Total Visit Minutes 45 Visit Number 7 PT-OP-B Current Condition Start: 05/06/21 07:39 Freq: Status: Active Protocol: Document 05/07/21 10:33 AMB (Rec: 05/07/21 10:41 AMB [id number]) Current Condition History of Current Condition Onset Date 6-9 months ago Current Complaints Hamstring/groin pain History of Current Condition R hamstring pain- feels pain with stretching. Hamstring happened first, then started noticing groin pain/pressure. A long time ago had back pain , but nothing recent. Any time I bend over I can feel some sensation in the hamstring. Isn't feeling it with walking or biking. Sits a lot for work, does do recumbant bike most days of the week. Prior Treatments and Tests ultrasound for inguinal hernia and negative per pt report Treatment Goals Patient/Caregiver Goals Be able to exercise/bend over without pain/pressure Prior Functional Status Baseline Function- ADL's Independent Baseline Function- Mobility Independent Current Functional Impairments (Reported) Functional Limitations- ADL's Pressure/pain with bending forward Personal Factors Other Personal Factors That May Effect none Therapy/Recovery PT-OP-C Subjective Start: 05/06/21 07:39 Freq: Status: Active Protocol: Document 06/07/21 08:15 AMB (Rec: 06/07/21 10:29 AMB [id number]) OP-PT Subjective Patient Comments Patient Comments Baltazar reports near resolution of his hamstring pain. He can bend down without pain at this point which he attributes to consistent strengthening, stretching and icing. He does still have some lateral hip pain when moving from sit to stand and pressure in the anterior hip with end range hip flexion and is concerned about this. PT-OP-J Posture/Palpation/Skin Start: 05/06/21 07:39 Freq: Status: Active Protocol: Document 05/07/21 10:30 AMB (Rec: 05/08/21 08:08 AMB [id number]) Palpation Assessment Location One Palpation Location R LE Palpation Details Hamstring pain more at distal medial tendons, no pain with palption of adductor or iliopsoas PT-OP-K Range of Motion Start: 05/06/21 07:39 Freq: Status: Active Protocol: Document 05/07/21 10:30 AMB (Rec: 05/07/21 10:53 AMB [id number]) Hip Goniometric Range of Motion Hip Right Passive Flexion w/Knee Flexed 112 Internal Rotation 41 Comments Brian test 52 on R vs70 on L. Pain with both hip flexion and IR, no painful ER. Left hip has the same ROM but no pain at end range. PT-OP-L Special Tests Start: 05/06/21 07:39 Freq: Status: Active Protocol: Document 05/07/21 10:30 AMB (Rec: 05/08/21 08:08 AMB [id number]) Special Tests Hip Special Tests VANCE Test Results - Brian Test Results + Comments on R Scour Test Test Results + Comments pain reproduced with flexion and adduction on R PT-OP-M Strength Start: 05/06/21 07:39 Freq: Status: Active Protocol: Document 05/07/21 10:30 AMB (Rec: 05/08/21 08:08 AMB [id number]) Hip Strength Hip Manual Muscle Testing Right Flexion (L2) 4+ Good+ Extension (S1) 4 Good Abduction 4+ Good+ Left Flexion (L2) 4+ Good+ Extension (S1) 4+ Good+ Abduction 4+ Good+ Knee Strength Knee Manual Muscle Testing Right Flexion (S2) 5 Normal Extension (L3) 5 Normal Left Flexion (S2) 5 Normal Extension (L3) 5 Normal PT-OP-Q Treatments Start: 05/06/21 07:39 Freq: Status: Active Protocol: Document 06/07/21 08:15 AMB (Rec: 06/07/21 10:29 AMB [id number]) Therapeutic Exercises Supine Exercises 2 Supine Exercise Name hip circles Comments even small increased pressure/ pain in hip bridges Resistance 10 Comments cued glute fac. rather than low back IT band stretch Reps/Minutes 30x2 active hamstring stretch Reps/Minutes 10 Sitting Exercises t band hamstring Resistance #4 band Reps/Minutes 2x10 Standing Exercises [place] lift Standing Exercise Name single leg Reps/Minutes 10-UE support Comments cue core/leg alignment active hamstring stretch Reps/Minutes 30x3 Comments against wall hip flexor stretch Side right Reps/Minutes 30X2 PT-OP-T Assessment and Plan Start: 05/06/21 07:39 Freq: Status: Active Protocol: Document 06/07/21 08:15 AMB (Rec: 06/07/21 09:06 AMB [id number]) Physical Therapy Assessment Goals Functional movement Short Term Goal (STG) 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 STG Duration MET HEP Short Term Goal (STG) Baltazar will be independent and consistent with a HEP to strengthen and stretch his right hip. STG Duration MET One Impairment ROM Short Term Goal (STG) Baltazar will improve his hip extension as shown by Brian test position of 65 degrees of knee flexion or better. STG Duration MET Care Home Goal (LTG) Baltazar will have 112 degrees of hip flexion without pain. R: flexion 106 45d ER, 32d IR. L: 120 45d ER, 30 IR LTG Duration 8 weeks Assessment Summary Assessment Baltazar's hamstring pain has improved well but he continues to have lateral hip pain and anterior pressure with end range hip flexion (limited to 106 degrees, stiffer than left hip which is at 120 degrees of flexion). Most discomfort is moving from sit to stand after he has been sitting for an extended period of time. He is thinking of going back to his physician to discuss this as it has not improved with PT like the hamstring has .
--- NOTE | 2021-07-03 10:51 | PT.OPDS ---
Current Diagnoses Right lower quadrant pain (06/07/21) Visit Care Team Role Provider Type Torsten Ibarra Family Provider Non-Staff Primary Care Provider Specialty: Nephrology Address: [address] [place] [address], [place], [address] Email: Lisbet Mcintosh MD Attending Provider Non-Staff Referring Provider Specialty: Internal Medicine Address: [address] [place], [address] Email: Visit Number Visit Number 7 Discharge Summary PT-OP-B Current Condition Start: 05/06/21 07:39 Freq: Status: Active Protocol: Document 05/07/21 10:33 AMB (Rec: 05/07/21 10:41 AMB [id number]) Current Condition History of Current Condition Onset Date 6-9 months ago Current Complaints Hamstring/groin pain History of Current Condition R hamstring pain- feels pain with stretching. Hamstring happened first, then started noticing groin pain/pressure. A long time ago had back pain , but nothing recent. Any time I bend over I can feel some sensation in the hamstring. Isn't feeling it with walking or biking. Sits a lot for work, does do recumbant bike most days of the week. Prior Treatments and Tests ultrasound for inguinal hernia and negative per pt report Treatment Goals Patient/Caregiver Goals Be able to exercise/bend over without pain/pressure Prior Functional Status Baseline Function- ADL's Independent Baseline Function- Mobility Independent Current Functional Impairments (Reported) Functional Limitations- ADL's Pressure/pain with bending forward Personal Factors Other Personal Factors That May Effect none Therapy/Recovery PT-OP-C Subjective Start: 05/06/21 07:39 Freq: Status: Active Protocol: Document 06/07/21 08:15 AMB (Rec: 06/07/21 10:29 AMB [id number]) OP-PT Subjective Patient Comments Patient Comments Baltazar reports near resolution of his hamstring pain. He can bend down without pain at this point which he attributes to consistent strengthening, stretching and icing. He does still have some lateral hip pain when moving from sit to stand and pressure in the anterior hip with end range hip flexion and is concerned about this. PT-OP-J Posture/Palpation/Skin Start: 05/06/21 07:39 Freq: Status: Active Protocol: Document 05/07/21 10:30 AMB (Rec: 05/08/21 08:08 AMB [id number]) Palpation Assessment Location One Palpation Location R LE Palpation Details Hamstring pain more at distal medial tendons, no pain with palption of adductor or iliopsoas PT-OP-K Range of Motion Start: 05/06/21 07:39 Freq: Status: Active Protocol: Document 05/07/21 10:30 AMB (Rec: 05/07/21 10:53 AMB [id number]) Hip Goniometric Range of Motion Hip Right Passive Flexion w/Knee Flexed 112 Internal Rotation 41 Comments Brain test 52 on R vs70 on L. Pain with both hip flexion and IR, no painful ER. Left hip has the same ROM but no pain at end range. PT-OP-L Special Tests Start: 05/06/21 07:39 Freq: Status: Active Protocol: Document 05/07/21 10:30 AMB (Rec: 05/08/21 08:08 AMB [id number]) Special Tests Hip Special Tests VANCE Test Results - Brian Test Results + Comments on R Scour Test Test Results + Comments pain reproduced with flexion and adduction on R PT-OP-M Strength Start: 05/06/21 07:39 Freq: Status: Active Protocol: Document 05/07/21 10:30 AMB (Rec: 05/08/21 08:08 AMB [id number]) Hip Strength Hip Manual Muscle Testing Right Flexion (L2) 4+ Good+ Extension (S1) 4 Good Abduction 4+ Good+ Left Flexion (L2) 4+ Good+ Extension (S1) 4+ Good+ Abduction 4+ Good+ Knee Strength Knee Manual Muscle Testing Right Flexion (S2) 5 Normal Extension (L3) 5 Normal Left Flexion (S2) 5 Normal Extension (L3) 5 Normal PT-OP-T Assessment and Plan Start: 05/06/21 07:39 Freq: Status: Active Protocol: Document 07/03/21 10:44 AMB (Rec: 07/03/21 10:51 AMB [id number]) Physical Therapy Assessment Goals Functional movement Short Term Goal (STG) 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 STG Duration MET HEP Short Term Goal (STG) Baltazar will be independent and consistent with a HEP to strengthen and stretch his right hip. STG Duration MET One Impairment ROM Short Term Goal (STG) Baltazar will improve his hip extension as shown by Brian test position of 65 degrees of knee flexion or better. STG Duration MET Quality Assurance/R&D Lab Technician Goal (LTG) Baltazar will have 112 degrees of hip flexion without pain. R: flexion 106 45d ER, 32d IR. L: 120 45d ER, 30 IR LTG Duration 8 weeks Assessment Summary Assessment Baltazar had met the majority of his goals one month ago, he then called in to cancel his remaining appointments as he is moving out of town. The goal that he had not met was a range of motion goal. Physical Therapy Plan Discharge Physical Therapy Discharge Reasons Patient Request
== END 2021-07-05 08:13 ==
LOC: PHYS 08:15
PROVIDERS: Family Provider Student in an Organized Health Care Education/Training Program; PCP Student in an Organized Health Care Education/Training Program; Referring Provider Internal Medicine; Visit Provider Internal Medicine
DX: R10.31 Right lower quadrant pain (principal)
CPT/HCPCS: 97110; 97140; 97161